=== PATIENT | male | born 1995 | race Caucasian/White ===

== ENCOUNTER 2020-09-03 11:45 | Outpatient (RCR) | payer BC, SELFPAY | END 2020-10-08 23:59 | LOC: IMMUN 11:45 | PROVIDERS: Referring Provider Family Medicine; Visit Provider Family Medicine | DX: Z23 Encounter for immunization (principal) | CPT/HCPCS: 0001A; 0002A; 91300 ==

== ENCOUNTER → 2021-01-19 | Outpatient (CLI) | payer BC, SELFPAY | END | disposition home or self-care (01) | PROVIDERS: Visit Provider Physician Assistant | DX: Z20.822 Contact with and (suspected) exposure to COVID-19 (principal) | CPT/HCPCS: 87635; U0005; U0003 ==

== ENCOUNTER → 2021-04-09 | Outpatient (CLI) | payer BC, SELFPAY | END | disposition home or self-care (01) | PROVIDERS: PCP Family Medicine; Referring Provider Family Medicine; Visit Provider Family Medicine | DX: Z20.822 Contact with and (suspected) exposure to COVID-19 (principal) | CPT/HCPCS: 87633; 87635; U0005; U0003 ==

== ENCOUNTER 2021-05-07 17:25 | Outpatient (CLI) | payer BC, SELFPAY | END 2021-05-07 23:59 | disposition short-term general hospital (02) | LOC: LABSPEC 05-08 09:05 | PROVIDERS: PCP Family Medicine; Visit Provider Family Medicine | DX: Z20.828 Contact with and (suspected) exposure to other viral communicable diseases (principal) | CPT/HCPCS: 87635; U0003; U0005 ==

== ENCOUNTER → 2022-08-18 | Outpatient (CLI) | payer BC, SELFPAY ==
--- NOTE | 2022-08-18 08:01 | MRI_ITS ---
STUDY: MRI RIGHT SHOULDER REASON FOR EXAM: Male, 27 years old. Pain after doing push ups. Unable to raise arm. TECHNIQUE: Standardized fat and water weighted pulse sequences were obtained in all 3 orthogonal planes. COMPARISON: Shoulder x-rays dated August 12, 2022. FINDINGS: Minimal supraspinatus tendinosis (coronal series 4 images 17-20). No full-thickness tear. Normal infraspinatus tendon. Normal subscapularis tendon. Normal teres minor tendon. Normal supraspinatus muscle. Normal infraspinatus muscle. Normal subscapularis muscle. Normal teres minor muscle. Small glenohumeral joint effusion (axial series 2 images 8-11). Minimal cystic changes in the anterior aspect of the humeral head (axial series 2 image 9). Normal biceps labral complex. Normal intracapsular long biceps tendon. Normal labrum. Normal capsulo- ligamentous complex. Normal rotator interval. Bone marrow edema in the distal clavicle and adjacent acromion compatible with stress-related changes (coronal series 525). There is a Type II morphology (curved), with a neutral orientation. There is no subacromial-subdeltoid bursal fluid. Normal visualized coracohumeral and coracoacromial ligaments. Normal quadrilateral space. Normal axillary space. Normal deltoid muscle. Normal trapezius muscle. MRI/Upper Ext Joint Only(Routine) IMPRESSION: Minimal supraspinatus tendinosis. 2. Minimal cystic changes in the anterior aspect of the humeral head. Intact long head of the biceps tendon. Stress-related bone marrow edema in the distal clavicle and adjacent acromion. Small glenohumeral joint effusion. Electronically Signed: Silviano Poole, at 9:20 EDT ,
== END | disposition home or self-care (01) ==
LOC: MRI 08:01
PROVIDERS: PCP Family Medicine; Referring Provider Orthopaedic Surgery Sports Medicine; Visit Provider Orthopaedic Surgery Sports Medicine
DX: M25.511 Pain in right shoulder (principal)
CPT/HCPCS: 73221